=== PATIENT | female | born 1995 | race Caucasian/White ===

== ENCOUNTER 2016-04-25 19:31 | Emergency (ER) | payer OTHER ==
[2016-04-25] MEDS ORDERED: HYDROmorphone 1 MG/ML SYRINGE IM STA (20:46)
[2016-04-25] MEDS ORDERED: PROMETHAZINE 25 MG/1 ML VIAL IM STA (20:48)
[2016-04-25] MEDS ORDERED: PROMETHAZINE 25 MG/1 ML VIAL ONE (20:54)
[2016-04-25] MEDS ORDERED: HYDROmorphone 1 MG/ML SYRINGE ONE (20:54)
== END 2016-04-25 22:04 | disposition home or self-care (01) ==
DX: G43.909 Migraine, unspecified, not intractable, without status migrainosus (principal)
CPT/HCPCS: 96372; 99283; 99284; J1170

== ENCOUNTER 2016-05-15 08:24 | Outpatient (CLI) | payer OTHER | END 2016-05-15 08:25 | disposition critical access hospital (66) | DX: R55 Syncope and collapse (principal) | CPT/HCPCS: A0425; A0427 ==

== ENCOUNTER 2016-05-15 08:53 | Emergency (ER) | payer OTHER ==
[2016-05-15] MEDS ORDERED: KETOROLAC 60 MG/2 ML VIAL IVP STA (09:49)
[2016-05-15] MEDS ORDERED: SODIUM CHLORIDE 0.9% 1,000 ML IV ONE (09:49)
[2016-05-15] MEDS ORDERED: ONDANSETRON 4 MG/2 ML VIAL IVP STA (09:49)
[2016-05-15] MEDS ORDERED: METOCLOPRAMIDE 10 MG/2 ML VIAL IVP STA (09:49)
[2016-05-15] MEDS ORDERED: METOCLOPRAMIDE 10 MG/2 ML VIAL IVP ONE (10:12)
[2016-05-15] MEDS ORDERED: ONDANSETRON 4 MG/2 ML VIAL ONE (10:12)
[2016-05-15] MEDS ORDERED: KETOROLAC 30 MG/ML VIAL ONE (10:12)
== END 2016-05-15 12:09 | disposition home or self-care (01) ==
DX: R55 Syncope and collapse (principal); R51 Headache

== ENCOUNTER 2016-06-25 09:13 | Emergency (ER) | payer OTHER ==
[2016-06-25] MEDS ORDERED: ONDANSETRON ODT 4 MG TABLET TL STA (10:11)
[2016-06-25] MEDS ORDERED: ACETAMINOPHEN 325 MG TABLET PO STA (10:12)
[2016-06-25] MEDS ORDERED: ACETAMINOPHEN 325 MG TABLET PO ONE (10:16)
[2016-06-25] MEDS ORDERED: ONDANSETRON ODT 4 MG TABLET ONE (10:16)
== END 2016-06-25 11:16 | disposition home or self-care (01) ==
DX: R11.2 Nausea with vomiting, unspecified (principal)
CPT/HCPCS: 81003; 81025; 99283; A9270; Q0162

== ENCOUNTER 2018-02-16 22:23 | Emergency (ER) | payer OTHER ==
[2018-02-16] MEDS ORDERED: guaiFENesin/CODEINE 5 ML UDC PO STA (22:44)
[2018-02-16] MEDS ORDERED: AMOX/CLAV 875 MG/125 MG TABLET PO STA (22:44)
--- NOTE | 2018-02-16 22:47 | ED Physician Documentation ---
PD HPI URI - Stated complaint Stated Complaint: CHEST PX/COUGHED UP BLOOD/SINUS PX - Chief complaint Chief Complaint: Resp - History obtained from History obtained from: Patient - History of Present Illness Timing - onset: Other (She is been sick for about 3 weeks with a productive cough and severe right facial pain. Fevers at times. She is been on Augmentin and another antibiotic. She is been off of the Augmentin for a couple of weeks now. She had a small amount of hemoptysis today. No possibility of .) Review of Systems Constitutional: denies: Fever, Chills Ears: denies: Loss of hearing, Ear pain Nose: reports: Rhinorrhea / runny nose, Congestion, Sinus pressure / pain. denies: Epistaxis Throat: denies: Sore throat Respiratory: reports: Dyspnea, Cough GI: denies: Abdominal Pain PD PAST MEDICAL HISTORY - Past Medical History Cardiovascular: None Respiratory: None Neuro: None Endocrine/Autoimmune: None GI: None : None HEENT: Other Psych: Depression, Other Musculoskeletal: Chronic back pain Derm: None - Past Surgical History Past Surgical History: No - Present Medications Home Medications: Ambulatory Orders Medication Instructions Recorded Confirmed Bcp 04/25/16 SUMAtriptan [Imitrex] 25 mg PO ONCE PRN #20 tablet 04/25/16 06/25/16 Gabapentin 1 tab PO DAILY 05/15/16 06/25/16 Venlafaxine [Effexor] 0 mg PO DAILY 05/15/16 06/25/16 Ondansetron Odt [Zofran] 4 mg TL Q6H PRN #15 tablet 06/25/16 Tramadol HCl 50 mg PO Q6H PRN #15 tablet 06/25/16 Amox/Clav 875/125 [Augmentin] 1 each PO Q12H 14 Days #28 tablet 02/16/18 Benzonatate [Tessalon Perle] 100 - 200 mg PO TID PRN #30 capsule 02/16/18 Guaifenesin/Pseudoephedrne HCl 1 each PO BID PRN #20 tab.er.12h 02/16/18 [Mucinex D ER 600-60 mg Tablet] Hydrocodone/Chlorphen P-Stirex 5 ml PO BID PRN #120 ml 02/16/18 [Hydrocodone-Chlorphen ER Susp] Mometasone Furoate [Nasonex] 1 spray NS DAILY #1 spray.pump 02/16/18 predniSONE [Deltasone] 20 mg PO [id number] #21 tab 02/16/18 - Allergies Allergies/Adverse Reactions: Allergies Allergy/AdvReac Type Severity Reaction Status Date / Time No Known Drug Allergies Allergy Verified 02/16/18 22:29 - Social History Does the pt smoke?: No Smoking Status: Never smoker Does the pt drink ETOH?: Yes Does the pt have substance abuse?: No - Immunizations Immunizations are current?: No Immunizations: TDAP current <10years - POLST Patient has POLST: No PD ED PE NORMAL - Vitals Vital signs reviewed: Yes - General General: Alert and oriented X 3, No acute distress - HEENT HEENT: PERRL, EOMI, Ears normal, Pharynx benign, Other (She has a lot of tenderness over the right maxillary sinus) - Neck Neck: Supple, no meningeal sign, No bony TTP - Cardiac Cardiac: RRR, No murmur - Respiratory Respiratory: No respiratory distress, Clear bilaterally - Abdomen Abdomen: Non tender - Neuro Neuro: Alert and oriented X 3, 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 Results - Vitals Vitals: Vital Signs - 24 hr 02/16/18 02/16/18 22:25 22:38 Temperature 37.1 C Heart Rate 105 H 93 Respiratory 19 18 Rate Blood Pressure 122/88 H 136/89 H O2 Saturation 99 98 Oxygen O2 Source Room air PD MEDICAL DECISION MAKING - ED course ED course: 22-year-old woman with severe symptoms associated with 3 weeks of sinusitis and other URI sent. She does fit criteria per the IDSA for antibiotic treatment for sinusitis. Departure - Departure Disposition: 01 Home, Self Care Clinical Impression: Sinusitis Qualifiers: Sinusitis location: maxillary Chronicity: acute Recurrence: recurrent Qualified Code(s): J01.01 - Acute recurrent maxillary sinusitis Condition: Good Record reviewed to determine appropriate education?: Yes Instructions: ED Sinusitis Abx Tx Prescriptions: Amox/Clav 875/125 [Augmentin] 1 each PO Q12H 14 Days #28 tablet Benzonatate [Tessalon Perle] 100 - 200 mg PO TID PRN #30 capsule PRN Reason: Cough Guaifenesin/Pseudoephedrne HCl [Mucinex D ER 600-60 mg Tablet] 1 each PO BID PRN #20 tab.er.12h PRN Reason: congestion Hydrocodone/Chlorphen P-Stirex [Hydrocodone-Chlorphen ER Susp] 5 ml PO BID PRN #120 ml PRN Reason: Cough Mometasone Furoate [Nasonex] 1 spray NS DAILY #1 spray.pump predniSONE [Deltasone] 20 mg PO [id number] #21 tab Comments: Call your doctor to arrange a follow-up appointment, make the next available appointment. In the interim, return anytime if worse or if new symptoms develop. Your blood pressure was elevated today on check into the emergency department. This does not mean that you have hypertension, it is a common phenomenon to come to the emergency department and have elevated blood pressure. I recommend that you see your primary care physician within the week to have it rechecked when you are feeling better. Forms: Activity restrictions
[2018-02-16 23:06] VITALS: BP 117/61
== END 2018-02-16 23:06 | disposition home or self-care (01) ==
LOC: ED 22:23
DX: J01.01 Acute recurrent maxillary sinusitis (principal); J06.9 Acute upper respiratory infection, unspecified
CPT/HCPCS: 99283; A9270

== ENCOUNTER 2018-04-28 17:21 | Emergency (ER) | payer OTHER ==
[2018-04-28 17:42] VITALS: BP 130/84
--- NOTE | 2018-04-28 18:14 | ED Physician Documentation ---
History of Present Illness - Stated complaint Stated Complaint: DIZZY - Chief complaint Chief Complaint: General - History obtained from History obtained from: Patient - History of Present Illness Timing: Other (For the last several months she has had increasing episodes of spinning like dizziness, especially when she is been walking around for a while or when she is laying in bed at night. There is no associated headache, weakness, tingling, diplopia. She called her doctor's office for appointment and she was referred to the emergency department.) Review of Systems Constitutional: denies: Fever, Chills Eyes: denies: Loss of vision, Decreased vision, Photophobia Ears: denies: Loss of hearing, Ear pain Nose: denies: Rhinorrhea / runny nose, Congestion Throat: denies: Sore throat Cardiac: denies: Chest pain / pressure, Palpitations Respiratory: denies: Dyspnea, Cough PD PAST MEDICAL HISTORY - Past Medical History Cardiovascular: None Respiratory: None Neuro: None Endocrine/Autoimmune: None GI: None : None HEENT: Other Psych: Depression, Other Musculoskeletal: Chronic back pain Derm: None - Past Surgical History Past Surgical History: No - Present Medications Home Medications: Ambulatory Orders Medication Instructions Recorded Confirmed Venlafaxine [Effexor] 0 mg PO DAILY 05/15/16 06/25/16 Meclizine HCl 25 mg PO Q6H PRN #20 tab.chew 04/28/18 - Allergies Allergies/Adverse Reactions: Allergies Allergy/AdvReac Type Severity Reaction Status Date / Time No Known Drug Allergies Allergy Verified 04/28/18 17:42 - Social History Does the pt smoke?: No Smoking Status: Never smoker Does the pt drink ETOH?: Yes Does the pt have substance abuse?: No - Immunizations Immunizations are current?: No Immunizations: TDAP current <10years - POLST Patient has POLST: No PD ED PE NORMAL - Vitals Vital signs reviewed: Yes - General General: Alert and oriented X 3, No acute distress - HEENT HEENT: PERRL, EOMI, Ears normal, Moist mucous membranes, Pharynx benign - Neck Neck: Supple, no meningeal sign, No bony TTP - Neuro Neuro: Alert and oriented X 3, 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 There is no evidence of a neurologic compromise On exam and she is referred back to her physician for further evaluation and treatment and likely ENT referral. Departure - Departure Disposition: 01 Home, Self Care Clinical Impression: Vertigo Condition: Good Record reviewed to determine appropriate education?: Yes Instructions: ED Vertigo Unspecified Prescriptions: Meclizine HCl 25 mg PO Q6H PRN #20 tab.chew PRN Reason: Dizziness Comments: [place]. Return for new or worsening symptoms. Your blood pressure was elevated today on check into the emergency department. This does not mean that you have hypertension, it is a common phenomenon to come to the emergency department and have elevated blood pressure. I recommend that you see your primary care physician within the week to have it rechecked when you are feeling better.
== END 2018-04-28 18:23 | disposition home or self-care (01) ==
LOC: ED 17:21
DX: R42 Dizziness and giddiness (principal); R03.0 Elevated blood-pressure reading, without diagnosis of hypertension
CPT/HCPCS: 99283

== ENCOUNTER 2018-05-13 10:18 | Emergency (ER) | payer OTHER ==
--- NOTE | 2018-05-13 12:18 | ED Physician Documentation ---
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 I saw her here couple weeks ago and she had normal neurologic exam. The meclizine does help but she continues to have episodes of this may be every other day. It is not necessarily positional. She denies any trouble with her ears. In contrast to the check-in chief complaint she did not syncopized, she got dizzy today and had to get down on the ground because of the spinning. There was no loss of consciousness. She does have a mild headache today. She has an appoint with her PCP, however it is not until the middle of next month.) Review of Systems Constitutional: denies: Fever, Chills Eyes: denies: Loss of vision, Decreased vision, Photophobia Ears: denies: Loss of hearing, Ear pain Nose: denies: Rhinorrhea / runny nose, Congestion GI: reports: Nausea. denies: Abdominal Pain : denies: Now EGA PD PAST MEDICAL HISTORY - Past Medical History Cardiovascular: None Respiratory: None Neuro: None Endocrine/Autoimmune: None GI: None : None HEENT: Other Psych: Depression, Other Musculoskeletal: Chronic back pain Derm: None - Past Surgical History Past Surgical History: No - Present Medications Home Medications: Ambulatory Orders Medication Instructions Recorded Confirmed Venlafaxine [Effexor] 0 mg PO DAILY 05/15/16 06/25/16 Meclizine HCl 25 mg PO Q6H PRN #20 tab.chew 04/28/18 - Allergies Allergies/Adverse Reactions: Allergies Allergy/AdvReac Type Severity Reaction Status Date / Time No Known Drug Allergies Allergy Verified 05/13/18 10:27 - Social History Does the pt smoke?: No Smoking Status: Never smoker Does the pt drink ETOH?: Yes Does the pt have substance abuse?: No - Immunizations Immunizations are current?: No Immunizations: TDAP current <10years - POLST Patient has POLST: No PD ED PE NORMAL - Vitals Vital signs reviewed: Yes - General General: Alert and oriented X 3, No acute distress - HEENT HEENT: PERRL, EOMI - Neck Neck: Supple, no meningeal sign, No bony TTP - Neuro Neuro: Alert and oriented X 3, mandrel press hand 2-12 intact Eye Opening: Spontaneous Motor: Obeys Commands Verbal: Oriented GCS Score: 15 - Psych Psych: Normal mood, Normal affect NIHSS - Time Time: 12:10 - Level of Consciousness Level of consciousness: (0) Alert, Keenly responsive LOC Questions: (0) Answers both Q's correct LOC Commands: (0) Performs both correctly - Gaze Best Gaze: (0) Normal - Visual Visual: (0) No loss - Facial Palsy Facial Palsy: (0) Normal, symmetrical movement - Motor Arms (both separate) Motor Arm (right): (0) No drift Motor Arm (left): (0) No drift - Motor Legs (both separate) Motor Leg (right): (0) No drift Motor Leg (left): (0) No drift - Limb Ataxia Limb Ataxia: (0) Absent (normal finger to nose and heel to lugo, no truncal ataxia) - Sensory Sensory: (0) Normal - Best Language Best Language: (0) No aphasia - Dysarthria Dysarthria: (0) Normal - Extinction and Inattention (formally neg Extinction and inattention: (0) No abnormality - Total Score/Results Total Score/Result: 0 Results - Vitals Vitals: Vital Signs - 24 hr 05/13/18 05/13/18 10:24 13:08 Temperature 36.8 C 36.8 C Heart Rate 80 68 Respiratory 18 12 Rate Blood Pressure 124/92 H 114/73 O2 Saturation 99 97 Oxygen O2 Source Room air - Labs Labs: Laboratory Tests 05/13/18 12:30 Urine Color YELLOW Urine Clarity CLOUDY Urine pH 6.0 Ur Specific [place] 1.025 Urine Protein NEGATIVE Urine Glucose (UA) NEGATIVE Urine Ketones NEGATIVE Urine Occult Blood SMALL H Urine Nitrite POSITIVE H Urine Bilirubin NEGATIVE Urine Urobilinogen 0.2 (NORMAL) Ur Leukocyte Esterase NEGATIVE Ur Microscopic Review INDICATED Urine Culture Comments Not Reportable Urine HCG, Qual NEGATIVE - Rads (name of study) CT Head Radiology: EMP read contemporaneously (NAD) PD MEDICAL DECISION MAKING - ED course ED course: Due to the unfortunately long wait to get in with her primary care physician on the [place] base we will do a head CT today noting that an MRI would be the preferred study but I am unable to obtain out of the emergency department. Her CT was negative. Urine noted, she has no symptoms attributable to UTI. Departure - Departure Disposition: 01 Home, Self Care Clinical Impression: Vertigo Condition: Good Record reviewed to determine appropriate education?: Yes Instructions: ED Vertigo Unspecified Comments: As discussed, primary care follow-up and eventual ENT referral is important and continue your efforts to try to obtain [place] base. Return for any new or worsening symptoms.
[2018-05-13 12:53] LABS: BILIRUBIN,URINE NEGATIVE (NEGATIVE); GLUCOSE, URINE (UA) NEGATIVE (NEGATIVE); KETONES,URINE (UA) NEGATIVE (NEGATIVE); LEUKOCYTE ESTERASE, URINE NEGATIVE (NEGATIVE); NITRITE,URINE POSITIVE (NEGATIVE); OCCULT BLOOD,URINE SMALL (NEGATIVE); PROTEIN,URINE NEGATIVE (NEGATIVE); UROBILINOGEN,URINE 0.2 (NORMAL) E.U./dL (NORMAL)
[2018-05-13 13:04] LABS: CLARITY,URINE CLOUDY (CLEAR); HCG UR QUAL NEGATIVE
--- NOTE | 2018-05-13 13:07 | CT Report ---
Reason: vertigo Procedure Date: 05/13/2018 Accession Number: [id number] / [id number] Procedure: CT - HEAD WO CPT Code: FULL RESULT: EXAM: CT HEAD EXAM DATE: 05/13/2018 12:30 PM. CLINICAL HISTORY: Vertigo. COMPARISON: HEAD W/O 05/15/2016 10:55 AM. TECHNIQUE: Multiaxial CT images were obtained from the foramen magnum to the vertex. Reformats: Sagittal and coronal. IV contrast: None. In accordance with CT protocol optimization, one or more of the following dose reduction techniques were utilized for this exam: automated exposure control, adjustment of mA and/or KV based on patient size, or use of iterative reconstructive technique. FINDINGS: Parenchyma: No intraparenchymal hemorrhage. No evidence of mass, midline shift, or CT findings of infarction. Logan-white differentiation is distinct. Extraaxial Spaces: Normal for age. No subdural or epidural collections identified. Ventricles: Normal in size and position. Sinuses and Orbits: Imaged paranasal sinuses, orbits, and mastoids show no significant abnormality. Bones: No evidence of fracture or calvarial defect. Other: None. IMPRESSION: Normal head CT. RADIA
[2018-05-13 13:08] VITALS: BP 114/73
[2018-05-13 13:10] LABS: BACTERIA,URINE Many /HPF (None Seen); RBC,URINE 0-5 /HPF (0-5); SQUAMOUS EPITHELIAL CELL,UR FEW Squamous (<= Few)
[2018-05-13 13:11] LABS: AMORPHOUS SEDIMENT,UR Few /LPF
== END 2018-05-13 13:17 | disposition home or self-care (01) ==
LOC: ED 10:18
DX: R42 Dizziness and giddiness (principal)
CPT/HCPCS: 70450; 81001; 81003; 81025; 87086; 87181; 99283

== ENCOUNTER 2019-12-22 20:51 | Emergency (ER) | payer OTHER ==
[2019-12-22] MEDS ORDERED: PROCHLORPERAZINE 10 MG/2 ML VIAL IVP STA (21:09)
[2019-12-22] MEDS ORDERED: diphenhydrAMINE INJ 50 MG/ML VIAL IVP STA (21:10)
--- NOTE | 2019-12-22 21:13 | ED Physician Documentation ---
History of Present Illness - Stated complaint Stated Complaint: RIGGS - Chief complaint Chief Complaint: Neuro - History of Present Illness Timing: How many days ago (3) - Additonal information Additional information: 24-year-old female presents to the emergency department with chief complaint of headache that began 3 days ago. She reports a history of recurrent and frequent headaches that she describes as migraines. She gets them on average of 1-2 times a week. Typically she tries to sleep and takes Excedrin or ibuprofen with minimal relief of pain. Today the pain got worse. She has associated light noise and smell sensitivity. No abdominal pain. Some nausea no vomiting. Denies possibility of though she is trying to conceive. She has had no fevers, nuchal rigidity. No recent travel. No rash no focal neuro deficits. Pt has been seen in this ED previously for headache and vertigo. She did have a normal head CT in 2019 Review of Systems Constitutional: denies: Fever, Chills Eyes: reports: Photophobia Ears: reports: Other (noise sensitivity) Nose: reports: Other (smell sensitivity). denies: Congestion, Epistaxis Throat: reports: Reviewed and negative Cardiac: reports: Reviewed and negative Respiratory: reports: Reviewed and negative GI: reports: Reviewed and negative : denies: Dysuria, Frequency Skin: reports: Reviewed and negative Musculoskeletal: reports: Reviewed and negative Neurologic: reports: Headache. denies: Generalized weakness, Focal weakness, Numbness, Near syncope, Syncope, Seizure, Altered mental status, Head injury, LOC Psychiatric: reports: Reviewed and negative PD PAST MEDICAL HISTORY - Past Medical History Past Medical History: Yes Cardiovascular: None Respiratory: None Neuro: Migraines Endocrine/Autoimmune: None GI: None : None HEENT: Other Psych: Depression, Other Musculoskeletal: Chronic back pain Derm: None - Past Surgical History Past Surgical History: No - Present Medications Home Medications: Ambulatory Orders Medication Instructions Recorded Confirmed Cephalexin [Keflex] 500 mg PO BID #10 capsule 12/22/19 - Allergies Allergies/Adverse Reactions: Allergies Allergy/AdvReac Type Severity Reaction Status Date / Time No Known Drug Allergies Allergy Verified 12/22/19 21:02 - Social History Does the pt smoke?: No Smoking Status: Never smoker Does the pt drink ETOH?: Yes Does the pt have substance abuse?: No - Immunizations Immunizations are current?: No Immunizations: TDAP current <10years - POLST Patient has POLST: No PD ED PE EXPANDED - General General: Alert, In Pain - HEENT HEENT: Atraumatic, PERRL, Ears normal, Moist mucous membranes, Pharynx normal - Eyes Eyes: PERRL, Normal accommodation - Neck Neck: Supple w/out meningeal sx. No: Stiff neck, Brudzinki's, Adenopathy, Limited ROM (FULL ROM) - Cardiac Cardiac: Regular Rate, Regular Rhythm, Radial strong equal, Cap refill < 2 sec - Respiratory Respiratory: Clear to ausultation olman. No: Distress, Labored - Abdomen Abdomen: Normal Bowel sounds. No: Tender to palpation - Derm Derm: Normal color, Warm and dry. No: Rash - Neuro Neuro: Alert and Oriented X 3, CNII-XII intact, Cerebellar nl, Normal gait, Normal finger nose, 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 - GCS Eye Opening: Spontaneous Motor: Obeys Commands Verbal: Oriented Total: 15 Results - Vitals Vitals: Vital Signs - 24 hr 12/22/19 12/22/19 20:54 21:05 Temperature 37.1 C 37.1 C Heart Rate 86 86 Respiratory 18 18 Rate Blood Pressure 122/80 122/80 O2 Saturation 97 97 Oxygen O2 Source Room air - Labs Labs: Laboratory Tests 12/22/19 21:13 Urine Color YELLOW Urine Clarity HAZY Urine pH 5.5 Ur Specific [place] >=1.030 H Urine Protein NEGATIVE Urine Glucose (UA) NEGATIVE Urine Ketones NEGATIVE Urine Occult Blood NEGATIVE Urine Nitrite POSITIVE H Urine Bilirubin NEGATIVE Urine Urobilinogen 0.2 (NORMAL) Ur Leukocyte Esterase NEGATIVE Urine RBC 0-5 Urine WBC 0-3 Ur Squamous Epith Cells FEW Squamous Urine Bacteria Many H Ur Microscopic Review INDICATED Urine Culture Comments INDICATED Urine HCG, Qual NEGATIVE PD MEDICAL DECISION MAKING - ED course Complexity details: reviewed old records, reviewed results, re-evaluated patient, considered differential, d/w patient, d/w family ED course: 24 year old female presents to the for evaluation of headache, Mostly right- sided with associated photophobia noise and smell sensitivity. She does have a long history of recurrent headaches. - She was given 1 L of IV fluids as well as Benadryl and Compazine in the emergency department. 30 minutes after administration of these meds she was having moderate relief of pain. Decadron was also ordered. Reassuringly she has no redflags or neuro deficits on exam - UA nitrite positive. Pt endorses some frequency, but no dysuria. previous UA similar and have grown a cook sensitive e-coli. will start keflex today in the ED and rx on dc - pt is to follow closely with pcp for longer term management of recurrent hea daches. Emergent return precautions discussed Departure - Departure Disposition: Home, Self Care Clinical Impression: Cystitis Headache Qualifiers: Headache type: unspecified Headache chronicity pattern: episodic headache Intractability: not intractable Qualified Code(s): R51.9 - Headache, unspecified Condition: Stable Record reviewed to determine appropriate education?: Yes Instructions: ED Headache Migraine Prescriptions: Cephalexin [Keflex] 500 mg PO BID #10 capsule Comments: Sheldon I hope that your headache is getting better. I would like you to take the cephalexin/Keflex twice a day for the next 5 days. It appears as though you do have an infection in your urine and this could be causing worsening headaches. When you go home it is okay to continue to take ibuprofen or the Excedrin for headache (but not both together). Please drink lots of fluids to help improve your dehydration. If at any point your headache worsens, you have fevers, stiff neck, or uncontrolled vomiting please return to the emergency department
[2019-12-22 21:15] LABS: BILIRUBIN,URINE NEGATIVE (NEGATIVE); GLUCOSE, URINE (UA) NEGATIVE (NEGATIVE); KETONES,URINE (UA) NEGATIVE (NEGATIVE); LEUKOCYTE ESTERASE, URINE NEGATIVE (NEGATIVE); NITRITE,URINE POSITIVE (NEGATIVE); OCCULT BLOOD,URINE NEGATIVE (NEGATIVE); PH,URINE 5.5 PH (5.0-7.5); PROTEIN,URINE NEGATIVE (NEGATIVE); UROBILINOGEN,URINE 0.2 (NORMAL) E.U./dL (NORMAL)
[2019-12-22 21:16] LABS: CLARITY,URINE HAZY (CLEAR)
[2019-12-22 21:17] LABS: HCG UR QUAL NEGATIVE
[2019-12-22 21:22] LABS: BACTERIA,URINE Many /HPF (None Seen); RBC,URINE 0-5 /HPF (0-5); SQUAMOUS EPITHELIAL CELL,UR FEW Squamous (<= Few)
[2019-12-22] MEDS ORDERED: cephALEXin 250 MG CAPSULE PO STA (21:33)
[2019-12-22] MEDS ORDERED: CHERRY SYRUP 10 ML UDC PO ONE (21:33)
[2019-12-22] MEDS ORDERED: DEXAMETHASONE 10 MG/ML VIAL PO STA (21:33)
[2019-12-22 22:33] VITALS: BP 122/72
== END 2019-12-22 22:32 | disposition home or self-care (01) ==
LOC: ED 20:51
DX: R51.9 Headache, unspecified (principal); N30.90 Cystitis, unspecified without hematuria; Z86.69 Personal history of other diseases of the nervous system and sense organs
CPT/HCPCS: 81001; 81025; 87086; 87181; 96374; 96375; 99283; 99284; A9270; J1200; 81003

== ENCOUNTER 2020-05-16 12:39 | Outpatient (CLI) | payer OTHER | END 2020-05-16 12:40 | disposition home or self-care (01) | LOC: LAB.N 12:39 | PROVIDERS: ATTEND Obstetrics & Gynecology | DX: Z32.01 Encounter for pregnancy test, result positive (principal) | CPT/HCPCS: 36415; 84702; 86850; 86900; 86901 ==

== ENCOUNTER 2020-05-18 07:00 | Outpatient (CLI) | payer OTHER ==
[2020-05-18 16:25] LABS: MUDS CUTOFF CONCENTRATIONS CUTOFF CONC BELOW:
[2020-05-18 16:35] LABS: BILIRUBIN,URINE NEGATIVE (NEGATIVE); GLUCOSE, URINE (UA) NEGATIVE (NEGATIVE); KETONES,URINE (UA) NEGATIVE (NEGATIVE); LEUKOCYTE ESTERASE, URINE NEGATIVE (NEGATIVE); NITRITE,URINE NEGATIVE (NEGATIVE); OCCULT BLOOD,URINE NEGATIVE (NEGATIVE); PROTEIN,URINE NEGATIVE (NEGATIVE); UROBILINOGEN,URINE 0.2 (NORMAL) E.U./dL (NORMAL)
[2020-05-18 16:45] LABS: COCAINE SCREEN URINE NEGATIVE (NEGATIVE); THC CANNABINOID SCREEN, URINE NEGATIVE (NEGATIVE)
[2020-05-18 16:46] LABS: AMPHETAMINE SCREEN,URINE NEGATIVE (NEGATIVE); BARBITURATE SCREEN,UR NEGATIVE (NEGATIVE); BENZODIAZEPINES SCREEN, URINE NEGATIVE (NEGATIVE); METHADONE SCREEN, URINE NEGATIVE (NEGATIVE); METHAMPHETAMINES SCREEN, URINE NEGATIVE (NEGATIVE); OPIATE SCREEN, URINE NEGATIVE (NEGATIVE); OXYCODONE SCREEN, URINE NEGATIVE (NEGATIVE); PROPOXYPHENE SCREEN, URINE NEGATIVE (NEGATIVE); TRICYCLIC ANTIDEPRESSANT,URINE NEGATIVE (NEGATIVE)
[2020-05-18 16:48] LABS: CLARITY,URINE CLOUDY (CLEAR)
[2020-05-18 16:53] LABS: AMORPHOUS SEDIMENT,UR Marked /LPF; BACTERIA,URINE Few /HPF (None Seen); RBC,URINE None Seen /HPF (0-5); SQUAMOUS EPITHELIAL CELL,UR RARE Squamous (<= Few); WBC,URINE 0-3 /HPF (0-5)
== END 2020-05-18 23:59 | disposition home or self-care (01) ==
LOC: LAB.R 07:00
PROVIDERS: ATTEND Nurse Practitioner Obstetrics & Gynecology
DX: Z32.01 Encounter for pregnancy test, result positive (principal)
CPT/HCPCS: 80306; 81001; 87086

== ENCOUNTER 2020-05-24 13:17 | Outpatient (CLI) | payer OTHER ==
--- NOTE | 2020-05-24 14:50 | Ultrasound Report ---
PROCEDURE: OB First Trimester w/TV INDICATIONS: POSITIVE TEST OUTSIDE/PRIOR DATING DATA: Last menstrual period (LMP): 04/04/2020 LMP-based estimated date of delivery (TAMANNA): 01/09/2021. First dating scan (date and location): This examination. Estimated date of delivery (TAMANNA) from first dating scan: See below. TECHNIQUE: Real-time scanning was performed of the fetus and maternal pelvic organs, with image documentation. Endovaginal scanning was also performed to better visualize the fetus and maternal ovaries. COMPARISON: None FINDINGS: An intrauterine gestational sac is seen. There is a yolk sac however no pole identif ied. Measurement variability in dating: +/- 4 weeks by LMP, +/- 7 days by mean sac diameter (use before 6 weeks gestation if crown-rump length not able to be measured), +/- 5 days by crown-rump length (6-12 weeks gestation). Maternal organs: Ovaries unremarkable except for a presumed corpus luteum on the left measuring 2.1 x 2.0 x 1.7 cm. Probable involuting right ovarian cyst/follicle measuring 1.6 x 0.6 x 1.0 cm. IMPRESSION: Intrauterine gestational sac however no pole is visualized. Findings could represent early IUP. Differential includes missed spontaneous /blighted ovum. Recommend follow-up with pelvic ult rasound in one week, and correlation with serial beta hCG values. Reviewed by: Connor Osorio MD on 05/24/2020 2:48 PM PDT Approved by: Connor Osorio MD on 05/24/2020 2:48 PM PDT Station ID: [id number]
== END 2020-05-24 13:18 | disposition home or self-care (01) ==
LOC: DI 13:17
PROVIDERS: ATTEND Nurse Practitioner Obstetrics & Gynecology
DX: O28.3 Abnormal ultrasonic finding on antenatal screening of mother (principal); Z3A.00 Weeks of gestation of pregnancy not specified

== ENCOUNTER 2020-05-25 16:27 | Outpatient (CLI) | payer OTHER | END 2020-05-25 23:59 | disposition home or self-care (01) | LOC: LAB.N 16:27 | PROVIDERS: ATTEND Nurse Practitioner Obstetrics & Gynecology | DX: O36.80X0 Pregnancy with inconclusive fetal viability, not applicable or unspecified (principal) | CPT/HCPCS: 36415; 84702 ==

== ENCOUNTER 2020-05-27 09:27 | Outpatient (CLI) | payer OTHER | END 2020-05-27 09:28 | disposition home or self-care (01) | LOC: LAB.N 09:27 | PROVIDERS: ATTEND Nurse Practitioner Obstetrics & Gynecology | DX: O36.80X0 Pregnancy with inconclusive fetal viability, not applicable or unspecified (principal) | CPT/HCPCS: 36415; 84702 ==

== ENCOUNTER 2020-06-01 08:00 | Outpatient (CLI) | payer OTHER ==
[2020-06-01 22:29] LABS: CHLAMYDIA TRACHOMATIS DNA NEGATIVE (NEGATIVE); NEISSERIA GONORRHOEAE DNA NEGATIVE (NEGATIVE); TRICHOMONAS VAGINALIS DNA NEGATIVE (NEGATIVE)
== END 2020-06-01 23:59 | disposition home or self-care (01) ==
LOC: LAB.R 08:00
PROVIDERS: ATTEND Nurse Practitioner Obstetrics & Gynecology
DX: Z11.3 Encounter for screening for infections with a predominantly sexual mode of transmission (principal)
CPT/HCPCS: 87491; 87591; 87661

== ENCOUNTER 2020-06-01 13:42 | Outpatient (CLI) | payer OTHER ==
[2020-06-01 14:12] LABS: BASOPHILS % (AUTO) 0.4 %; EOSINOPHILS # (AUTO) 0.1 10^3/uL (0.0-0.7); EOSINOPHILS % (AUTO) 0.6 %; HCT - HEMATOCRIT 40.9 % (37.0-47.0); HGB - HEMOGLOBIN 13.6 g/dL (12.0-16.0); LYMPHOCYTES # (AUTO) 1.6 10^3/uL (1.5-3.5); LYMPHOCYTES % (AUTO) 19.4 %; MEAN CORPUSCULAR HEMOGLOBIN 30.6 pg (27.0-31.0); MEAN CORPUSCULAR HGB CONC 33.3 g/dL (32.0-36.0); MEAN CORPUSCULAR VOLUME 92.1 fL (81.0-99.0); MEAN PLATELET VOLUME 9.4 fL (7.9-10.8); MONOCYTES # (AUTO) 0.4 10^3/uL (0.0-1.0); MONOCYTES % (AUTO) 5.1 %; NEUTROPHILS # (AUTO) 6.2 10^3/uL (1.5-6.6); NEUTROPHILS % (AUTO) 74.3 %; PLT - PLATELET COUNT 277 10^3/uL (130-450); RED BLOOD COUNT 4.44 10^6/uL (4.20-5.40); RED CELL DISTRIBUTION WIDTH 12.4 % (12.0-15.0); WHITE BLOOD COUNT 8.3 x10^3/uL (4.8-10.8)
[2020-06-01 20:04] LABS: ESTIMATED AVERAGE GLUCOSE 128 mg/dL (70-100); HEMOGLOBIN A1c% 6.1 % (4.27-6.07)
[2020-06-02 07:57] LABS: HIV AG/AB 4TH GEN NON-REACTIVE (NON-REACTIVE)
[2020-06-02 11:06] LABS: HEPATITIS B SURFACE ANTIGEN NON-REACTIVE (NON-REACTIVE)
[2020-06-02 11:55] LABS: HEPATITIS C ANTIBODY NON-REACTIVE (NON-REACTIVE)
== END 2020-06-01 13:43 | disposition home or self-care (01) ==
LOC: LAB 13:42
PROVIDERS: ATTEND Nurse Practitioner Obstetrics & Gynecology
DX: O36.80X0 Pregnancy with inconclusive fetal viability, not applicable or unspecified (principal); Z36.89 Encounter for other specified antenatal screening
CPT/HCPCS: 36415; 83036; 84702; 85025; 86592; 86762; 86787; 86803; 86850; 86900; 86901; 87340; 87389

== ENCOUNTER 2020-06-06 11:30 | Outpatient (CLI) | payer OTHER ==
[2020-06-06 12:23] LABS: GTT GLUCOSE,FASTING 103 mg/dL (70-100)
--- NOTE | 2020-06-06 19:59 | Ultrasound Report ---
PROCEDURE: OB First Trimester w/TV INDICATIONS: UNCERTAIN VIABILITY OF OUTSIDE/PRIOR DATING DATA: Last menstrual period (LMP): 04/04/2020. LMP-based estimated date of delivery (TAMANNA): 01/09/2021. First dating scan (date and location): 06/06/2020. Estimated date of delivery (TAMANNA) from first dating scan: 01/22/2021. TECHNIQUE: Real-time scanning was performed of the fetus and maternal pelvic organs, with image documentation. Endovaginal scanning was also performed to better visualize the fetus and maternal ovaries. COMPARISON: 05/24/2020 FINDINGS: Embryo: Single intrauterine gestational sac is seen with fetus and yolk sac seen. heart rate i s 155 bpm. [place]-rump length measures 1.01 cm, estimated gestational age is 7 weeks 1 day. Small subc horionic hemorrhage is seen measures 1.3 x 0.9 x 1.2 cm in size. Measurement variability in dating: +/- 4 weeks by LMP, +/- 7 days by mean sac diameter (use before 6 weeks gestation if crown-rump length not able to be measured), +/- 5 days by crown-rump length (6-12 weeks gestation). Maternal organs: Right ovary is visualized and is within normal limits. 2 x 1.6 x 1.5 cm corpus luteu m is seen in left ovary. No solid appearing ovarian lesion. IMPRESSION: 1. Single live intrauterine with fetus and yolk sac seen. heart rate is 155 bpm. Elizabeth mated gestational age based on current study is 7 weeks, 1 day. 2. Small subchorionic hemorrhage as above. 3. 2 x 1.6 x 1.5 cm corpus luteum seen in left ovary. Reviewed by: John Rao MD on 06/06/2020 7:58 PM PDT Approved by: John Rao MD on 06/06/2020 7:58 PM PDT Station ID: [id number]
== END 2020-06-06 11:31 | disposition home or self-care (01) ==
LOC: LAB 11:30
PROVIDERS: ATTEND Nurse Practitioner Obstetrics & Gynecology
DX: O99.210 Obesity complicating pregnancy, unspecified trimester (principal); O20.8 Other hemorrhage in early pregnancy; O34.81 Maternal care for other abnormalities of pelvic organs, first trimester; N83.12 Corpus luteum cyst of left ovary; Z3A.01 Less than 8 weeks gestation of pregnancy
CPT/HCPCS: 36415; 82951

== ENCOUNTER 2020-07-13 23:24 | Emergency (ER) | payer OTHER ==
--- OUTSIDE RECORDS SUMMARY | 2020-07-13 23:27 | EXTERNAL MEDICAL SUMMARY RPT | Continuity of Care Document ---
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 Unavailable Unavailable RN Unavailable Unavailable MD Unavailable Unavailable Medications date description facility 20200517 [facility] All 20200517 [id number] All 20200517 [facility] All 20200517 [facility] All 20200517 [id number] All 20200517 [facility] All Problems date description facility 20200528 HCG, QUANTITATIVE All 20200527 HCG, QUANTITATIVE All 20200525 Uncertain viability of All 20200525 Supervision of high-risk with inconclusive All viability 20200525 with inconclusive viabi lity, not applicable or All unspecified 20200525 HCG QUANTITATIVE All 20200518 UTOX w/ Reflex Testing All 20200518 US OB <14 WEEKS All [id number] Tobacco smoking status NHIS All [id number] Health-related behavior All 20200518 Details of drug misuse behavior All 20200518 Urinalysis with Microscopic Exam, Cultu re in Indicated All 20200518 US TRANSVAGINAL, OB All 20200518 Tobacco use and exposure All 20200518 Never smoker All 20200518 Exercise All 20200518 Alcohol use All 50757481 Tobacco use and exposure All 95429298 Tobacco smoking status NHIS All 11134720 Reactive airways dysfunction syndrome All 36141896 Polycystic ovaries All 62854284 Polycystic ovarian syndrome All 91149427 Other acute and subacute respiratory con ditions due to All chemicals, gases, fumes and vapors 20200517 Never smoker All 80403662 Myopia, unspecified eye All 21290768 Mild recurrent major depression All 17439054 Mild dysplasia of cervix All 92889592 Mild cervical dysplasia All 85860647 Migraine All 76663157 Major depressive disorder, recurrent, m ild All 06342392 Low back pain All 04370225 Health-related behavior All 20200517 Generalized anxiety disorder All 00984502 Female infertility, unspecified All 92502950 Female infertility All 30274375 Employment detail All 34417944 Details of drug misuse behavior All 99531219 Total score? All 55659626 Polycystic ovary syndrome All 47528386 Myopia All 91284918 Migraine, unspecified, without mention o f intractable migraine, All without mention of status migrainosus 78228419 Migraine, unspecified, not intractable, without status All migrainosus 70043486 Major depressive disorder, recurrent ep isode, mild degree All 21972496 Lumbago All 79556451 Infertility, female, of unspecified vivi gin All 52484985 HCG QUANTITATIVE All 18874960 Exercise All 80837733 Chronic low back pain All 51617141 Cervical intraepithelial neoplasia grad e 1 All 61504694 Asthma, unspecified All 85037495 Alcohol use All 54693727 Rh Phenotype All 91764457 examination or test, positive result All 30607099 Blood Type All 51707550 HCG, QUANTITATIVE All 13809468 test positive All 25022444 Encounter for test, result po sitive All Procedures date description facility 20200527 HCG, QUANTITATIVE All 37605530 HCG, QUANTITATIVE All 23388799 HCG QUANTITATIVE All 38786325 HCG QUANTITATIVE All 65129096 Urinalysis with Microscopic Exam, Cultu re in Indicated All 00680263 UTOX w/ Reflex Testing All 56443103 US OB <14 WEEKS All 72780888 Urinalysis with Microscopic Exam, Cultu re in Indicated All 32129051 UTOX w/ Reflex Testing All 97816735 US OB <14 WEEKS All 23113876 Rh Phenotype All 18413299 Blood Type All 47577262 HCG, QUANTITATIVE All 28120905 Rh Phenotype All 01107059 Blood Type All 85024083 HCG, QUANTITATIVE All 13954138 Rh Phenotype All 90189536 Blood Type All 50118988 HCG, QUANTITATIVE All Results test status date ordered by attending specimen sumi e WBC_urine_on_microscop unknown 98011615 unknown unknown unknown y Urobilinogen_Presence_ unknown 78675285 unknown unknown unknown in_Urine_by_Test_strip Specific_gravity_of_Ur unknown 43347882 unknown unknown unknown ine_by_Test_strip Nitrite_Presence_in_Ur unknown 89666452 unknown unknown unknown ine_by_Test_strip Leukocyte_esterase_Pre unknown 63534693 unknown unknown unknown sence_in_Urine_by_Test_ strip Ketones_Mass_volume_in unknown 68855307 unknown unknown unknown _Urine_by_Test_strip Color_of_Urine unknown 66433766 unknown unknown unknown Bilirubin.total_Presen unknown 09367046 unknown unknown unknown ce_in_Urine_by_Test_str ip clarity_urine_point unknown 39621269 unknown unknown unk nown pH_study_of_acidity unknown 07348100 unknown unknown unk nown culture_status unknown 27658417 unknown unknown unknown urinalysis_routine unknown 13577253 unknown unknown unkn own Herpes_Simplex_Virus_G unknown 11040571 unknown unknown unknown enital glucose_urine unknown 57015604 unknown unknown unknown leukocyte_esterase_uri unknown 31338067 unknown unknown unknown ne_by_dipstick urobilinogen_urine_sem unknown 45657997 unknown unknown unknown iquantitative_dipstick_ specific_gravity_urine unknown 82307372 unknown unknown unknown nitrite_urine_semiquan unknown 99171781 unknown unknown unknown titative ketones_urine_by_test_ unknown 03891240 unknown unknown unknown strip bilirubin_urine unknown 49081587 unknown unknown unknown urine_color unknown 68408022 unknown unknown unknown Glucose_Mass_volume_in unknown 84998272 unknown unknown unknown _Urine WBC_urine_on_microscop unknown 24327061 unknown unknown unknown y WBC_URINE unknown 80013661 unknown unknown unknown UROBILINOGEN_URINE unknown 44251104 unknown unknown unkn own SPECIFIC_GRAVITY_URINE unknown 90268279 unknown unknown unknown T unknown 38148064 unknown unknown unknown T unknown 36041939 unknown unknown unknown T unknown 53621852 unknown unknown unknown T unknown 39629666 unknown unknown unknown T unknown 90530621 unknown unknown unknown T unknown 67052321 unknown unknown unknown T unknown 02330940 unknown unknown unknown T unknown 40428969 unknown unknown unknown T unknown 97883740 unknown unknown unknown T unknown 62291147 unknown unknown unknown T unknown 80429046 unknown unknown unknown PH_URINE unknown 13050291 unknown unknown unknown NITRITE_URINE unknown 72919536 unknown unknown unknown LEUKOCYTE_ESTERASE_URI unknown 14220685 unknown unknown unknown NE KETONES_URINE_UA_ unknown 81165751 unknown unknown unkno wn GLUCOSE_URINE_UA_ unknown 22224115 unknown unknown unkno wn COLOR_URINE unknown 33043281 unknown unknown unknown CLARITY_URINE unknown 62645536 unknown unknown unknown BILIRUBIN_URINE unknown 48226816 unknown unknown unknown WBC_urine_on_microscop unknown 49310309 unknown unknown unknown y Urobilinogen_Presence_ unknown 46374004 unknown unknown unknown in_Urine_by_Test_strip Specific_gravity_of_Ur unknown 85074067 unknown unknown unknown ine_by_Test_strip Nitrite_Presence_in_Ur unknown 56834450 unknown unknown unknown ine_by_Test_strip Leukocyte_esterase_Pre unknown 12475617 unknown unknown unknown sence_in_Urine_by_Test_ strip Ketones_Mass_volume_in unknown 25315916 unknown unknown unknown _Urine_by_Test_strip Color_of_Urine unknown 49108473 unknown unknown unknown Bilirubin.total_Presen unknown 33293790 unknown unknown unknown ce_in_Urine_by_Test_str ip clarity_urine_point unknown 25015819 unknown unknown unk nown pH_study_of_acidity unknown 03847177 unknown unknown unk nown culture_status unknown 23951346 unknown unknown unknown urinalysis_routine unknown 45977123 unknown unknown unkn own Herpes_Simplex_Virus_G unknown 95963304 unknown unknown unknown enital glucose_urine unknown 34526164 unknown unknown unknown leukocyte_esterase_uri unknown 98364413 unknown unknown unknown ne_by_dipstick urobilinogen_urine_sem unknown 39029663 unknown unknown unknown iquantitative_dipstick_ specific_gravity_urine unknown 35022254 unknown unknown unknown nitrite_urine_semiquan unknown 62987279 unknown unknown unknown titative ketones_urine_by_test_ unknown 76893645 unknown unknown unknown strip bilirubin_urine unknown 39966881 unknown unknown unknown urine_color unknown 53636700 unknown unknown unknown Glucose_Mass_volume_in unknown 53405108 unknown unknown unknown _Urine WBC_urine_on_microscop unknown 97816383 unknown unknown unknown y WBC_URINE unknown 69322816 unknown unknown unknown UROBILINOGEN_URINE unknown 83729380 unknown unknown unkn own SPECIFIC_GRAVITY_URINE unknown 98894095 unknown unknown unknown T unknown 58051181 unknown unknown unknown T unknown 55220596 unknown unknown unknown T unknown 06890723 unknown unknown unknown T unknown 35936170 unknown unknown unknown T unknown 00143961 unknown unknown unknown T unknown 67505047 unknown unknown unknown T unknown 77772598 unknown unknown unknown T unknown 37622897 unknown unknown unknown T unknown 37172191 unknown unknown unknown T unknown 04685228 unknown unknown unknown T unknown 48898913 unknown unknown unknown PH_URINE unknown 14291631 unknown unknown unknown NITRITE_URINE unknown 50639725 unknown unknown unknown LEUKOCYTE_ESTERASE_URI unknown 42079126 unknown unknown unknown NE KETONES_URINE_UA_ unknown 90171081 unknown unknown unkno wn GLUCOSE_URINE_UA_ unknown 45988581 unknown unknown unkno wn COLOR_URINE unknown 07912009 unknown unknown unknown CLARITY_URINE unknown 68351516 unknown unknown unknown BILIRUBIN_URINE unknown 39920458 unknown unknown unknown Thyrotropin_Units_volu unknown 91265981 unknown unknown unknown me_in_Serum_or_Plasma thyroid_stimulating_ho unknown 48219025 unknown unknown unknown rmone_serum Thyrotropin_Units_volu unknown 79673655 unknown unknown unknown me_in_Serum_or_Plasma thyroid_stimulating_ho unknown 20763675 unknown unknown unknown rmone_serum Human_papilloma_virus_1 unknown 17569698 unknown unknown unknown 6_and_18_and_31_33_35_3 9_45_51_52_56_58_59_66_ 68_DNA_Interpretation_i n_Cervix vaginal_Pap_smear_resu unknown 92110858 unknown unknown unknown lts Human_papilloma_virus_1 unknown 73325104 unknown unknown unknown 6_18_31_33_35_45_51_52_ 56_DNA_Presence_in_Cerv ix_by_Probe Human_Papillomavirus_t unknown 81320765 unknown unknown unknown est_result General_categories_Inte unknown 70402498 unknown unknown unknown rpretation_of_Cervical_ or_vaginal_smear_or_scr aping_by_Cyto_stain Human_papilloma_virus_ unknown 76149279 unknown unknown unknown identified_in_Unspecifi ed_specimen Human_papilloma_virus_1 unknown 01200022 unknown unknown unknown 6_and_18_and_31_33_35_3 9_45_51_52_56_58_59_66_ 68_DNA_Interpretation_i n_Cervix vaginal_Pap_smear_resu unknown 27225050 unknown unknown unknown lts Human_papilloma_virus_1 unknown 70831688 unknown unknown unknown 6_18_31_33_35_45_51_52_ 56_DNA_Presence_in_Cerv ix_by_Probe Human_Papillomavirus_t unknown 26519752 unknown unknown unknown est_result General_categories_Inte unknown 53197804 unknown unknown unknown rpretation_of_Cervical_ or_vaginal_smear_or_scr aping_by_Cyto_stain Human_papilloma_virus_ unknown 11932555 unknown unknown unknown identified_in_Unspecifi ed_specimen facility observation status value reference units lab code abn ormal line range notes All WBC_urine_on unknown 0-3 /HPF unknown _5821-4 unkn own unknown _microscopy All Urobilinogen unknown 0.2 unknown _5818-0 unknow n unknown _Presence_in_ (NORMAL) Urine_by_Test _strip All Specific_gra unknown >=1.030 unknown _5811-5 unkno wn unknown vity_of_Urine _by_Test_stri p All Nitrite_Pres unknown NEGATIVE unknown _5802-4 unkn own unknown ence_in_Urine _by_Test_stri p All Leukocyte_es unknown NEGATIVE unknown _5799-2 unkn own unknown terase_Presen ce_in_Urine_b y_Test_strip All Ketones_Mass unknown NEGATIVE unknown _5797-6 unkn own unknown _volume_in_Ur ine_by_Test_s trip All Color_of_Uri unknown YELLOW unknown _5778-6 unknow n unknown ne All Bilirubin.to unknown NEGATIVE unknown _5770-3 unkn own unknown tal_Presence_ in_Urine_by_T est_strip All clarity_urin unknown CLOUDY unknown _5589 unknown unknown e_point All pH_study_of_ unknown 6.0 unknown _51641 unknown unknown acidity All culture_stat unknown Yes unknown _51015 unknown unknown us All urinalysis_r unknown Clean unknown _47 unknown unknown outine Catch All Herpes_Simpl unknown no unknown _4258 unknown unknown ex_Virus_Geni wai All glucose_urin unknown NEGATIVE unknown _3369 unkno wn unknown e mg/dL All leukocyte_es unknown NEGATIVE unknown _327 unkno wn unknown terase_urine_ by_dipstick All urobilinogen unknown 0.2 unknown _326 unknown unknown _urine_semiqu (NORMAL) antitative_di pstick_ All specific_gra unknown >=1.030 unknown _325 unknow n unknown vity_urine All nitrite_urin unknown NEGATIVE unknown _323 unkno wn unknown e_semiquantit ative All ketones_urin unknown NEGATIVE unknown _322 unkno wn unknown e_by_test_str ip All bilirubin_ur unknown NEGATIVE unknown _319 unkno wn unknown ine All urine_color unknown YELLOW unknown _2751 unknown unknown All Glucose_Mass unknown NEGATIVE unknown _2350-7 unkn own unknown _volume_in_Ur mg/dL ine All WBC_urine_on unknown 0-3 /HPF unknown _1016 unkno wn unknown _microscopy All WBC_URINE unknown 0-3 /HPF unknown UWBC unknown unknown All UROBILINOGEN unknown 0.2 unknown UUROBIL unknow n unknown _URINE (NORMAL) All SPECIFIC_GRA unknown >=1.030 unknown USG unknow n unknown VITY_URINE All T unknown 0-3 /HPF unknown UR_WBC unknown un known All T unknown 0.2 unknown UR_URO unknown unkn own (NORMAL) All T unknown >=1.030 unknown UR_SG unknown unk nown All T unknown 6.0 unknown UR_PH unknown unkn own All T unknown NEGATIVE unknown UR_NIT unknown un known All T unknown NEGATIVE unknown UR_LEU_E unknown unknown STERASE All T unknown NEGATIVE unknown UR_KETO_ unknown unknown UA_ All T unknown NEGATIVE unknown UR_GLU unknown un known mg/dL All T unknown YELLOW unknown UR_COLOR unknown un known All T unknown CLOUDY unknown UR_CLARI unknown un known TY All T unknown NEGATIVE unknown UR_BILI unknown u nknown All PH_URINE unknown 6.0 unknown UPH unknown un known All NITRITE_URIN unknown NEGATIVE unknown UNITRITE unk nown unknown E All LEUKOCYTE_ES unknown NEGATIVE unknown ULEUK unkno wn unknown TERASE_URINE All KETONES_URIN unknown NEGATIVE unknown UKET unkno wn unknown E_UA_ All GLUCOSE_URIN unknown NEGATIVE unknown UGLUC unkno wn unknown E_UA_ mg/dL All COLOR_URINE unknown YELLOW unknown UCOL unknown unknown All CLARITY_URIN unknown CLOUDY unknown UCLAR unknown unknown E All BILIRUBIN_UR unknown NEGATIVE unknown UBIL unkno wn unknown INE All WBC_urine_on unknown 0-3 /HPF unknown _5821-4 unkn own unknown _microscopy All Urobilinogen unknown 0.2 unknown _5818-0 unknow n unknown _Presence_in_ (NORMAL) Urine_by_Test _strip All Specific_gra unknown >=1.030 unknown _5811-5 unkno wn unknown vity_of_Urine _by_Test_stri p All Nitrite_Pres unknown NEGATIVE unknown _5802-4 unkn own unknown ence_in_Urine _by_Test_stri p All Leukocyte_es unknown NEGATIVE unknown _5799-2 unkn own unknown terase_Presen ce_in_Urine_b y_Test_strip All Ketones_Mass unknown NEGATIVE unknown _5797-6 unkn own unknown _volume_in_Ur ine_by_Test_s trip All Color_of_Uri unknown YELLOW unknown _5778-6 unknow n unknown ne All Bilirubin.to unknown NEGATIVE unknown _5770-3 unkn own unknown tal_Presence_ in_Urine_by_T est_strip All clarity_urin unknown CLOUDY unknown _5589 unknown unknown e_point All pH_study_of_ unknown 6.0 unknown _51641 unknown unknown acidity All culture_stat unknown Yes unknown _51015 unknown unknown us All urinalysis_r unknown Clean unknown _47 unknown unknown outine Catch All Herpes_Simpl unknown no unknown _4258 unknown unknown ex_Virus_Geni wai All glucose_urin unknown NEGATIVE unknown _3369 unkno wn unknown e mg/dL All leukocyte_es unknown NEGATIVE unknown _327 unkno wn unknown terase_urine_ by_dipstick All urobilinogen unknown 0.2 unknown _326 unknown unknown _urine_semiqu (NORMAL) antitative_di pstick_ All specific_gra unknown >=1.030 unknown _325 unknow n unknown vity_urine All nitrite_urin unknown NEGATIVE unknown _323 unkno wn unknown e_semiquantit ative All ketones_urin unknown NEGATIVE unknown _322 unkno wn unknown e_by_test_str ip All bilirubin_ur unknown NEGATIVE unknown _319 unkno wn unknown ine All urine_color unknown YELLOW unknown _2751 unknown unknown All Glucose_Mass unknown NEGATIVE unknown _2350-7 unkn own unknown _volume_in_Ur mg/dL ine All WBC_urine_on unknown 0-3 /HPF unknown _1016 unkno wn unknown _microscopy All WBC_URINE unknown 0-3 /HPF unknown UWBC unknown unknown All UROBILINOGEN unknown 0.2 unknown UUROBIL unknow n unknown _URINE (NORMAL) All SPECIFIC_GRA unknown >=1.030 unknown USG unknow n unknown VITY_URINE All T unknown 0-3 /HPF unknown UR_WBC unknown un known All T unknown 0.2 unknown UR_URO unknown unkn own (NORMAL) All T unknown >=1.030 unknown UR_SG unknown unk nown All T unknown 6.0 unknown UR_PH unknown unkn own All T unknown NEGATIVE unknown UR_NIT unknown un known All T unknown NEGATIVE unknown UR_LEU_E unknown unknown STERASE All T unknown NEGATIVE unknown UR_KETO_ unknown unknown UA_ All T unknown NEGATIVE unknown UR_GLU unknown un known mg/dL All T unknown YELLOW unknown UR_COLOR unknown un known All T unknown CLOUDY unknown UR_CLARI unknown un known TY All T unknown NEGATIVE unknown UR_BILI unknown u nknown All PH_URINE unknown 6.0 unknown UPH unknown un known All NITRITE_URIN unknown NEGATIVE unknown UNITRITE unk nown unknown E All LEUKOCYTE_ES unknown NEGATIVE unknown ULEUK unkno wn unknown TERASE_URINE All KETONES_URIN unknown NEGATIVE unknown UKET unkno wn unknown E_UA_ All GLUCOSE_URIN unknown NEGATIVE unknown UGLUC unkno wn unknown E_UA_ mg/dL All COLOR_URINE unknown YELLOW unknown UCOL unknown unknown All CLARITY_URIN unknown CLOUDY unknown UCLAR unknown unknown E All BILIRUBIN_UR unknown NEGATIVE unknown UBIL unkno wn unknown INE All Thyrotropin_ unknown 1.599 unknown u[iU] _3016-3 unknow n unknown Units_volume_ /mL in_Serum_or_P lasma All thyroid_stim unknown 1.599 unknown u[iU] _29 unknown unknown ulating_hormo /mL ne_serum All Thyrotropin_ unknown 1.599 unknown u[iU] _3016-3 unknow n unknown Units_volume_ /mL in_Serum_or_P lasma All thyroid_stim unknown 1.599 unknown u[iU] _29 unknown unknown ulating_hormo /mL ne_serum All Human_papillo unknown HR+; unknown _77379-6 unkno wn unknown ma_virus_16_a Negative nd_18_and_31_ 16 + 18 33_35_39_45_5 1_52_56_58_59 _66_68_DNA_In terpretation_ in_Cervix All vaginal_Pap_ unknown ASCUS unknown _73 unknown unknown smear_results All Human_papillo unknown HR+; unknown _21440-3 unkno wn unknown ma_virus_16_1 Negative 8_31_33_35_45 16 + 18 _51_52_56_DNA _Presence_in_ Cervix_by_Pro be All Human_Papill unknown HR+; unknown _ unknown unknown omavirus_test Negative _result 16 + 18 All General_categ unknown ASCUS unknown _- unkno wn unknown ories_Interpr etation_of_Ce rvical_or_vag inal_smear_or _scraping_by_ Cyto_stain All Human_papill unknown HR+; unknown _11481-9 unkno wn unknown oma_virus_ide Negative ntified_in_Un 16 + 18 specified_spe cimen All Human_papillo unknown HR+; unknown _77379-6 unkno wn unknown ma_virus_16_a Negative nd_18_and_31_ 16 + 18 33_35_39_45_5 1_52_56_58_59 _66_68_DNA_In terpretation_ in_Cervix All vaginal_Pap_ unknown ASCUS unknown _73 unknown unknown smear_results All Human_papillo unknown HR+; unknown _21440-3 unkno wn unknown ma_virus_16_1 Negative 8_31_33_35_45 16 + 18 _51_52_56_DNA _Presence_in_ Cervix_by_Pro be All Human_Papill unknown HR+; unknown _ unknown unknown omavirus_test Negative _result 16 + 18 All General_categ unknown ASCUS unknown _-4 unkno wn unknown ories_Interpr etation_of_Ce rvical_or_vag inal_smear_or _scraping_by_ Cyto_stain All Human_papill unknown HR+; unknown _11481-9 unkno wn unknown oma_virus_ide Negative ntified_in_Un 16 + 18 specified_spe cimen Vital Signs date measurement value source 20200518 weight_standard 244.2 lb 20200518 weight_metric 110.77 kg 20200518 height_standard 68 in 20200518 height_metric 172.72 cm 20200518 BMI 37.26 kg/m2 20200518 weight_standard 244.2 lb 20200518 weight_metric 110.77 kg 20200518 height_standard 68 in 20200518 height_metric 172.72 cm 20200518 BMI 37.26 kg/m2
--- OUTSIDE RECORDS SUMMARY | 2020-07-13 23:30 | EXTERNAL MEDICAL SUMMARY RPT | Continuity of Care Document ---
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 Unavailable RN Unavailable Unavailable MD Unavailable Unavailable Medications date description facility 20200517 [facility] All 20200517 [id number] All 20200517 METFORMIN HCL All 20200517 METFORMIN HCL All 20200517 [id number] All 20200517 METFORMIN HCL All Problems date description facility 20200528 HCG, QUANTITATIVE All 20200527 HCG, QUANTITATIVE All 20200525 Uncertain viability of All 20200525 Supervision of high-risk with inconclusive All viability 20200525 with inconclusive viabi lity, not applicable or All unspecified 20200525 HCG QUANTITATIVE All 20200518 UTOX w/ Reflex Testing All 20200518 US OB <14 WEEKS All 24872263 Tobacco smoking status NHIS All 30099956 Health-related behavior All 20200518 Details of drug misuse behavior All 20200518 Urinalysis with Microscopic Exam, Cultu re in Indicated All 20200518 US TRANSVAGINAL, OB All 20200518 Tobacco use and exposure All 20200518 Never smoker All 20200518 Exercise All 20200518 Alcohol use All 59230152 Tobacco use and exposure All 17246069 Tobacco smoking status NHIS All 83938277 Reactive airways dysfunction syndrome All 83663583 Polycystic ovaries All 94212568 Polycystic ovarian syndrome All 54609767 Other acute and subacute respiratory con ditions due to All chemicals, gases, fumes and vapors 20200517 Never smoker All 65344488 Myopia, unspecified eye All 12340424 Mild recurrent major depression All 99030976 Mild dysplasia of cervix All 78644159 Mild cervical dysplasia All 74324566 Migraine All 99733770 Major depressive disorder, recurrent, m ild All 77643619 Low back pain All 94983658 Health-related behavior All 20200517 Generalized anxiety disorder All 51887841 Female infertility, unspecified All 23871012 Female infertility All 56185574 Employment detail All 15132122 Details of drug misuse behavior All 97182418 Total score? All 01549552 Polycystic ovary syndrome All 44346666 Myopia All 65289092 Migraine, unspecified, without mention o f intractable migraine, All without mention of status migrainosus 21572769 Migraine, unspecified, not intractable, without status All migrainosus 08245495 Major depressive disorder, recurrent ep isode, mild degree All 64414641 Lumbago All 90032264 Infertility, female, of unspecified vivi gin All 77348240 HCG QUANTITATIVE All 96744477 Exercise All 34515968 Chronic low back pain All 14510630 Cervical intraepithelial neoplasia grad e 1 All 40995278 Asthma, unspecified All 74505564 Alcohol use All 50482557 Rh Phenotype All 77293299 examination or test, positive result All 97550873 Blood Type All 54966865 HCG, QUANTITATIVE All 59901096 test positive All 94197815 Encounter for test, result po sitive All Procedures date description facility 20200527 HCG, QUANTITATIVE All 80636494 HCG, QUANTITATIVE All 98252665 HCG QUANTITATIVE All 53329767 HCG QUANTITATIVE All 52399511 Urinalysis with Microscopic Exam, Cultu re in Indicated All 54334635 UTOX w/ Reflex Testing All 01701552 US OB <14 WEEKS All 47596671 Urinalysis with Microscopic Exam, Cultu re in Indicated All 48649144 UTOX w/ Reflex Testing All 48018423 US OB <14 WEEKS All 98903093 Rh Phenotype All 73718955 Blood Type All 47220474 HCG, QUANTITATIVE All 20773288 Rh Phenotype All 52662864 Blood Type All 30201085 HCG, QUANTITATIVE All 65123529 Rh Phenotype All 83964498 Blood Type All 89154618 HCG, QUANTITATIVE All Results test status date ordered by attending specimen sumi e WBC_urine_on_microscop unknown 23419499 unknown unknown unknown y Urobilinogen_Presence_ unknown 73475021 unknown unknown unknown in_Urine_by_Test_strip Specific_gravity_of_Ur unknown 78335994 unknown unknown unknown ine_by_Test_strip Nitrite_Presence_in_Ur unknown 77164579 unknown unknown unknown ine_by_Test_strip Leukocyte_esterase_Pre unknown 41294247 unknown unknown unknown sence_in_Urine_by_Test_ strip Ketones_Mass_volume_in unknown 41270037 unknown unknown unknown _Urine_by_Test_strip Color_of_Urine unknown 71131870 unknown unknown unknown Bilirubin.total_Presen unknown 89800153 unknown unknown unknown ce_in_Urine_by_Test_str ip clarity_urine_point unknown 33095083 unknown unknown unk nown pH_study_of_acidity unknown 74464966 unknown unknown unk nown culture_status unknown 37469046 unknown unknown unknown urinalysis_routine unknown 02988193 unknown unknown unkn own Herpes_Simplex_Virus_G unknown 94595801 unknown unknown unknown enital glucose_urine unknown 47510723 unknown unknown unknown leukocyte_esterase_uri unknown 86359178 unknown unknown unknown ne_by_dipstick urobilinogen_urine_sem unknown 25497506 unknown unknown unknown iquantitative_dipstick_ specific_gravity_urine unknown 97849469 unknown unknown unknown nitrite_urine_semiquan unknown 24889196 unknown unknown unknown titative ketones_urine_by_test_ unknown 43779630 unknown unknown unknown strip bilirubin_urine unknown 33464461 unknown unknown unknown urine_color unknown 30633164 unknown unknown unknown Glucose_Mass_volume_in unknown 35384994 unknown unknown unknown _Urine WBC_urine_on_microscop unknown 01291483 unknown unknown unknown y WBC_URINE unknown 19598646 unknown unknown unknown UROBILINOGEN_URINE unknown 49162026 unknown unknown unkn own SPECIFIC_GRAVITY_URINE unknown 80645003 unknown unknown unknown T unknown 93002316 unknown unknown unknown T unknown 60101596 unknown unknown unknown T unknown 74613031 unknown unknown unknown T unknown 88022874 unknown unknown unknown T unknown 19740194 unknown unknown unknown T unknown 73012717 unknown unknown unknown T unknown 13021185 unknown unknown unknown T unknown 44913173 unknown unknown unknown T unknown 04380583 unknown unknown unknown T unknown 25467196 unknown unknown unknown T unknown 30714314 unknown unknown unknown PH_URINE unknown 92022192 unknown unknown unknown NITRITE_URINE unknown 90545011 unknown unknown unknown LEUKOCYTE_ESTERASE_URI unknown 77878584 unknown unknown unknown NE KETONES_URINE_UA_ unknown 32837858 unknown unknown unkno wn GLUCOSE_URINE_UA_ unknown 11405941 unknown unknown unkno wn COLOR_URINE unknown 80701894 unknown unknown unknown CLARITY_URINE unknown 87073215 unknown unknown unknown BILIRUBIN_URINE unknown 09619172 unknown unknown unknown WBC_urine_on_microscop unknown 16371374 unknown unknown unknown y Urobilinogen_Presence_ unknown 35283400 unknown unknown unknown in_Urine_by_Test_strip Specific_gravity_of_Ur unknown 24580645 unknown unknown unknown ine_by_Test_strip Nitrite_Presence_in_Ur unknown 26616730 unknown unknown unknown ine_by_Test_strip Leukocyte_esterase_Pre unknown 06843998 unknown unknown unknown sence_in_Urine_by_Test_ strip Ketones_Mass_volume_in unknown 88953329 unknown unknown unknown _Urine_by_Test_strip Color_of_Urine unknown 67753568 unknown unknown unknown Bilirubin.total_Presen unknown 62230108 unknown unknown unknown ce_in_Urine_by_Test_str ip clarity_urine_point unknown 80012328 unknown unknown unk nown pH_study_of_acidity unknown 84496659 unknown unknown unk nown culture_status unknown 88939226 unknown unknown unknown urinalysis_routine unknown 81365889 unknown unknown unkn own Herpes_Simplex_Virus_G unknown 90613238 unknown unknown unknown enital glucose_urine unknown 89449863 unknown unknown unknown leukocyte_esterase_uri unknown 02142715 unknown unknown unknown ne_by_dipstick urobilinogen_urine_sem unknown 86353287 unknown unknown unknown iquantitative_dipstick_ specific_gravity_urine unknown 05120910 unknown unknown unknown nitrite_urine_semiquan unknown 20961249 unknown unknown unknown titative ketones_urine_by_test_ unknown 65472872 unknown unknown unknown strip bilirubin_urine unknown 73063013 unknown unknown unknown urine_color unknown 56270288 unknown unknown unknown Glucose_Mass_volume_in unknown 67472030 unknown unknown unknown _Urine WBC_urine_on_microscop unknown 60677281 unknown unknown unknown y WBC_URINE unknown 42964804 unknown unknown unknown UROBILINOGEN_URINE unknown 78700108 unknown unknown unkn own SPECIFIC_GRAVITY_URINE unknown 27087467 unknown unknown unknown T unknown 72411009 unknown unknown unknown T unknown 25826454 unknown unknown unknown T unknown 19842912 unknown unknown unknown T unknown 31446527 unknown unknown unknown T unknown 81927358 unknown unknown unknown T unknown 44711188 unknown unknown unknown T unknown 23826734 unknown unknown unknown T unknown 27499390 unknown unknown unknown T unknown 63206335 unknown unknown unknown T unknown 27088721 unknown unknown unknown T unknown 43201376 unknown unknown unknown PH_URINE unknown 07457117 unknown unknown unknown NITRITE_URINE unknown 38939324 unknown unknown unknown LEUKOCYTE_ESTERASE_URI unknown 79197994 unknown unknown unknown NE KETONES_URINE_UA_ unknown 00324536 unknown unknown unkno wn GLUCOSE_URINE_UA_ unknown 79165543 unknown unknown unkno wn COLOR_URINE unknown 89910423 unknown unknown unknown CLARITY_URINE unknown 48926395 unknown unknown unknown BILIRUBIN_URINE unknown 96462786 unknown unknown unknown Thyrotropin_Units_volu unknown 08016719 unknown unknown unknown me_in_Serum_or_Plasma thyroid_stimulating_ho unknown 34400345 unknown unknown unknown rmone_serum Thyrotropin_Units_volu unknown 80837359 unknown unknown unknown me_in_Serum_or_Plasma thyroid_stimulating_ho unknown 65784897 unknown unknown unknown rmone_serum Human_papilloma_virus_1 unknown 87065114 unknown unknown unknown 6_and_18_and_31_33_35_3 9_45_51_52_56_58_59_66_ 68_DNA_Interpretation_i n_Cervix vaginal_Pap_smear_resu unknown 61301820 unknown unknown unknown lts Human_papilloma_virus_1 unknown 04364608 unknown unknown unknown 6_18_31_33_35_45_51_52_ 56_DNA_Presence_in_Cerv ix_by_Probe Human_Papillomavirus_t unknown 93146293 unknown unknown unknown est_result General_categories_Inte unknown 74544681 unknown unknown unknown rpretation_of_Cervical_ or_vaginal_smear_or_scr aping_by_Cyto_stain Human_papilloma_virus_ unknown 31157808 unknown unknown unknown identified_in_Unspecifi ed_specimen Human_papilloma_virus_1 unknown 77006000 unknown unknown unknown 6_and_18_and_31_33_35_3 9_45_51_52_56_58_59_66_ 68_DNA_Interpretation_i n_Cervix vaginal_Pap_smear_resu unknown 49343347 unknown unknown unknown lts Human_papilloma_virus_1 unknown 19355103 unknown unknown unknown 6_18_31_33_35_45_51_52_ 56_DNA_Presence_in_Cerv ix_by_Probe Human_Papillomavirus_t unknown 53125739 unknown unknown unknown est_result General_categories_Inte unknown 42951032 unknown unknown unknown rpretation_of_Cervical_ or_vaginal_smear_or_scr aping_by_Cyto_stain Human_papilloma_virus_ unknown 74135885 unknown unknown unknown identified_in_Unspecifi ed_specimen facility observation [...]
--- NOTE | 2020-07-14 00:04 | ED Physician Documentation ---
PD HPI ABD PAIN - Stated complaint Stated Complaint: abd pain - Chief complaint Chief Complaint: Abd Pain - History obtained from History obtained from: Patient - Additional information Additional information: Patient comes emergency department chief complaint of left-sided abdominal discomfort that is been going on for the past day. Patient states that she has not had a bowel movement in several days and is 12 weeks . She states that she felt the urge to have a bowel movement today but when she tried to push, nothing would come out and she got a sharp pain in her left lower quadrant. Patient states that this caused her to feel nauseated. Patient denies fevers or chills. No dysuria. No blood in her urine and no vaginal bleeding. Mild back pain that has been going on for the last couple of weeks. Patient states she has had nausea on and off throughout her , but has not vomited today. Patient states that she does have an OB and has had an ultrasound demonstrated IUP. She is currently on Reglan for nausea, which she states does not really help. No other complaints at this time. Patient does note she also takes vitamins. Review of Systems Ten Systems: 10 systems reviewed and negative Constitutional: reports: Reviewed and negative Eyes: reports: Reviewed and negative Ears: reports: Reviewed and negative Nose: reports: Reviewed and negative Throat: reports: Reviewed and negative Cardiac: reports: Reviewed and negative Respiratory: reports: Reviewed and negative GI: reports: Abdominal Pain, Nausea, Constipation : reports: Reviewed and negative Skin: reports: Reviewed and negative Musculoskeletal: reports: Reviewed and negative Neurologic: reports: Reviewed and negative Psychiatric: reports: Reviewed and negative Endocrine: reports: Reviewed and negative Immunocompromised: reports: Reviewed and negative PD PAST MEDICAL HISTORY - Past Medical History Cardiovascular: None Respiratory: None Neuro: Migraines Endocrine/Autoimmune: None GI: None : None HEENT: Other Psych: Depression, Other Musculoskeletal: Chronic back pain Derm: None - Past Surgical History Past Surgical History: No - Present Medications Home Medications: Ambulatory Orders Medication Instructions Recorded Confirmed Metformin HCl [Glucophage] 850 mg PO DAILY 07/13/20 07/14/20 Metoclopramide HCl [Metoclopramide 10 mg PO DAILY PRN 07/13/20 07/14/20 HCl Odt] Nitrofurantoin Monohyd/M-Cryst 100 mg PO BID #10 cap 07/14/20 [Macrobid 100 mg Capsule] Ondansetron Odt [Zofran] 4 mg TL Q6H PRN #10 tablet 07/14/20 - Allergies Allergies/Adverse Reactions: Allergies Allergy/AdvReac Type Severity Reaction Status Date / Time No Known Drug Allergies Allergy Verified 07/13/20 23:31 - Social History Does the pt smoke?: No Smoking Status: Never smoker Does the pt drink ETOH?: Yes Does the pt have substance abuse?: No - Immunizations Immunizations are current?: No Immunizations: TDAP current <10years - POLST Patient has POLST: No PD ED PE NORMAL - Vitals Vital signs reviewed: Yes - General General: Alert and oriented X 3, No acute distress, Well developed/nourished - HEENT HEENT: Atraumatic, PERRL, EOMI, Moist mucous membranes - Neck Neck: Supple, no meningeal sign - Cardiac Cardiac: RRR, No murmur, Strong equal pulses - Respiratory Respiratory: No respiratory distress, Clear bilaterally - Abdomen Abdomen: Soft, Non distended, Other (Mild tenderness, no rebound or guarding, left mid abdomen.) - Derm Derm: Normal color, Warm and dry, No rash - Extremities Extremities: No deformity, No edema, No calf tenderness / cord - Neuro Neuro: Alert and oriented X 3, 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, 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 - Psych Psych: Normal mood, Normal affect Results - Vitals Vitals: Vital Signs - 24 hr 07/13/20 07/14/20 23:28 01:20 Temperature 36 C L 36.7 C Heart Rate 81 79 Respiratory 16 18 Rate Blood Pressure 131/76 H 125/76 O2 Saturation 99 99 Oxygen O2 Source Room air - Labs Labs: Laboratory Tests 07/13/20 07/13/20 07/14/20 23:59 23:59 00:00 WBC 8.9 RBC 4.15 L Hgb 12.7 Hct 38.1 MCV 91.8 MCH 30.6 MCHC 33.3 RDW 12.0 Plt Count 264 MPV 9.6 Neut # (Auto) 6.1 Lymph # (Auto) 2.1 [place] # (Auto) 0.4 Eos # (Auto) 0.1 Baso # (Auto) 0.0 Absolute Nucleated RBC 0.00 Nucleated RBC % 0.0 Sodium 136 Potassium 3.6 Chloride 104 Carbon Dioxide 21 Anion Gap 11.0 BUN 6 Creatinine 0.6 Estimated GFR (MDRD) 120 Glucose 124 H Calcium 8.9 Total Bilirubin 0.5 AST 12 ALT 11 Alkaline Phosphatase 49 Total Protein 7.5 Albumin 3.6 Globulin 3.9 Albumin/Globulin Ratio 0.9 L Lipase 25 Urine Color YELLOW Urine Clarity HAZY Urine pH 6.0 Ur Specific [place] 1.025 Urine Protein NEGATIVE Urine Glucose (UA) NEGATIVE Urine Ketones NEGATIVE Urine Occult Blood TRACE-INTA Urine Nitrite POSITIVE H Urine Bilirubin NEGATIVE Urine Urobilinogen 1 (NORMAL) Ur Leukocyte Esterase TRACE H Urine RBC 0-5 Urine WBC 4-5 Ur Squamous Epith Cells FEW Squamous Urine Crystals 11-25 Ca Oxalate Urine Bacteria Moderate H Ur Microscopic Review INDICATED Urine Culture Comments INDICATED PD MEDICAL DECISION MAKING - ED course Complexity details: reviewed results, re-evaluated patient, considered differential, d/w patient ED course: Patient was treated symptomatically with Zofran and worked up with labs and urinalysis. Labs were unremarkable, but urinalysis was positive for infection. Patient was started on Macrobid in the emergency department and given prescription for the same for at home. She was also given a prescription for Zofran. We have discussed home management of the symptoms, the need for antibiotics, and the usual indications for return. Departure - Departure Disposition: 01 Home, Self Care Clinical Impression: Urinary tract infection affecting Condition: Stable Instructions: ED UTI Cystitis Female Prescriptions: Nitrofurantoin Monohyd/M-Cryst [Macrobid 100 mg Capsule] 100 mg PO BID #10 cap Ondansetron Odt [Zofran] 4 mg TL Q6H PRN #10 tablet PRN Reason: Nausea / Vomiting Comments: Your labs look good. Your urinalysis is positive for infection, which is most likely why you have the discomfort. Please take the antibiotics as directed and the nausea medicine as needed. Your baby's heartbeat sounds great. Please make an appointment to follow-up with your OB if you are not feeling better in the next several days. Discharge Date/Time: 07/14/20 01:20
[2020-07-14] MEDS ORDERED: ONDANSETRON 4 MG/2 ML VIAL IVP STA (00:11)
[2020-07-14] MEDS ORDERED: SODIUM CHLORIDE 0.9% 1,000 ML IV STA (00:11)
[2020-07-14 00:21] LABS: BILIRUBIN,URINE NEGATIVE (NEGATIVE); CLARITY,URINE HAZY (CLEAR); GLUCOSE, URINE (UA) NEGATIVE (NEGATIVE); KETONES,URINE (UA) NEGATIVE (NEGATIVE); LEUKOCYTE ESTERASE, URINE TRACE (NEGATIVE); NITRITE,URINE POSITIVE (NEGATIVE); OCCULT BLOOD,URINE TRACE-INTA (NEGATIVE); PROTEIN,URINE NEGATIVE (NEGATIVE); UROBILINOGEN,URINE 1 (NORMAL) E.U./dL (NORMAL)
[2020-07-14 00:24] LABS: ALBUMIN 3.6 g/dL (3.2-5.5); ALBUMIN/GLOBULIN RATIO 0.9 (1.0-2.2); BILIRUBIN,TOTAL 0.5 mg/dL (0.2-1.0); CALCIUM 8.9 mg/dL (8.5-10.3); CREATININE 0.6 mg/dL (0.4-1.0); POTASSIUM 3.6 mmol/L (3.5-5.0); TOTAL PROTEIN 7.5 g/dL (6.7-8.2)
[2020-07-14 00:28] LABS: BACTERIA,URINE Moderate /HPF (None Seen); RBC,URINE 0-5 /HPF (0-5); SQUAMOUS EPITHELIAL CELL,UR FEW Squamous (<= Few)
[2020-07-14 00:29] LABS: CRYSTALS,URINE 11-25 Ca Oxalate /LPF
[2020-07-14 00:33] LABS: BASOPHILS % (AUTO) 0.5 %; EOSINOPHILS # (AUTO) 0.1 10^3/uL (0.0-0.7); EOSINOPHILS % (AUTO) 1.1 %; HCT - HEMATOCRIT 38.1 % (37.0-47.0); HGB - HEMOGLOBIN 12.7 g/dL (12.0-16.0); LYMPHOCYTES # (AUTO) 2.1 10^3/uL (1.5-3.5); LYMPHOCYTES % (AUTO) 24.2 %; MEAN CORPUSCULAR HEMOGLOBIN 30.6 pg (27.0-31.0); MEAN CORPUSCULAR HGB CONC 33.3 g/dL (32.0-36.0); MEAN CORPUSCULAR VOLUME 91.8 fL (81.0-99.0); MEAN PLATELET VOLUME 9.6 fL (7.9-10.8); MONOCYTES # (AUTO) 0.4 10^3/uL (0.0-1.0); NEUTROPHILS # (AUTO) 6.1 10^3/uL (1.5-6.6); NEUTROPHILS % (AUTO) 68.6 %; PLT - PLATELET COUNT 264 10^3/uL (130-450); RED BLOOD COUNT 4.15 10^6/uL (4.20-5.40); WHITE BLOOD COUNT 8.9 x10^3/uL (4.8-10.8)
[2020-07-14] MEDS ORDERED: NITROFURANTOIN MACRO 100 MG CAPSULE PO STA (01:07)
[2020-07-14 01:21] VITALS: BP 125/76
== END 2020-07-14 01:20 | disposition home or self-care (01) ==
LOC: ED 23:24
DX: O23.41 Unspecified infection of urinary tract in pregnancy, first trimester (principal); Z3A.12 12 weeks gestation of pregnancy
CPT/HCPCS: 36415; 80053; 81001; 83690; 85025; 87086; 87181; 96374; 99283; 99284; A9270; 81003

== ENCOUNTER 2020-10-17 15:44 | Outpatient (CLI) | payer OTHER ==
--- NOTE | 2020-10-17 18:38 | PROVIDER PROGRESS NOTE ---
- HPI Chief Complaint: Other (See NST) Current : Vital Signs Temperature 98.2 F 10/17/20 15:55 Heart Rate 110 H 10/17/20 15:55 Respiratory Rate 18 10/17/20 15:55 Blood Pressure 135/76 H 10/17/20 15:55 O2 Saturation 98 10/17/20 15:55 Temperature 98.2 F 10/17/20 15:55 Heart Rate 110 H 10/17/20 15:55 Respiratory Rate 18 10/17/20 15:55 Blood Pressure 132/76 H 10/17/20 16:18 O2 Saturation 98 10/17/20 15:55
[2020-10-17 19:13] VITALS: BP 125/79
--- NOTE | 2020-10-22 04:18 | PROCEDURE REPORT ---
- HPI Diagnosis/Indication for NST: Decreased movement Current EDU 01/22/21 Gestation 26 Weeks and 1 Days 1 Para 0 Vital Signs Temperature 98.2 F 10/17/20 15:55 Heart Rate 110 H 10/17/20 15:55 Respiratory Rate 18 10/17/20 15:55 Blood Pressure 135/76 H 10/17/20 15:55 O2 Saturation 98 10/17/20 15:55 Temperature 98.2 F 10/17/20 15:55 Heart Rate 110 H 10/17/20 15:55 Respiratory Rate 18 10/17/20 15:55 Blood Pressure 125/79 10/17/20 18:22 O2 Saturation 98 10/17/20 15:55 - NST Procedure NST Procedure Start Date 10/17/20 Start Time 15:50 Stop Time 18:36 Vibroacoustic Stimulation Used Yes: Per MD request Patient States Movement No: not since saturday EFM 150 mod yaa 15x15 accels no decels TOCO: quiet - Results and Plan Findings/Impression: 25 yo at 26+1 wga who presents with decreased FM Cat I tracing/AGA Warning signs reviewed Kick count sheets provided FU with OB in clinic DOS: 10/17/20 NST read 10/17/20
== END 2020-10-17 18:40 | disposition home or self-care (01) ==
LOC: WFO 15:44 → FBP 15:46 → WFO 18:40
PROVIDERS: ATTEND Obstetrics & Gynecology
DX: O36.8120 Decreased fetal movements, second trimester, not applicable or unspecified (principal); Z3A.26 26 weeks gestation of pregnancy
CPT/HCPCS: 59025; 99214

== ENCOUNTER 2021-07-14 08:11 | Outpatient (CLI) | payer OTHER ==
--- NOTE | 2021-07-14 09:55 | XRAY Report ---
PROCEDURE: Hand 3 View BILAT INDICATIONS: BILAT HAND PAIN TECHNIQUE: 3 views of the bilateral hand(s) acquired. COMPARISON: None. FINDINGS: BONES: No acute, displaced fracture or dislocation. The carpal bones are normally aligned. The joint spaces are maintained. No erosive change is appreciated. SOFT TISSUES: No focal abnormality. IMPRESSION: 1.No acute significant abnormality. Reviewed by: Gavino Lomeli MD on 07/14/2021 9:53 AM PDT Approved by: Gavino Lomeli MD on 07/14/2021 9:53 AM PDT Station ID: [id number]
== END 2021-07-14 23:59 | disposition home or self-care (01) ==
LOC: DI.WOS 08:11
PROVIDERS: ATTEND Physician Assistant
DX: M79.641 Pain in right hand (principal); M79.642 Pain in left hand